=== PATIENT | male | born 1945 | race Hispanic/Latino ===

== ENCOUNTER 2016-07-17 06:27 | Day surgery (SDC) | payer BC, MEDICARE ==
[2016-07-08 13:04] VITALS: BMI 27.7
[2016-07-17] MEDS ORDERED: Propofol 10 mg/ml Inj (20 ML) ONE (08:05)
[2016-07-17] MEDS ORDERED: Lidocaine 2% Inj (20ml) ONE (08:09)
[2016-07-17 08:36] VITALS: TEMP 97.8
[2016-07-17] MEDS ORDERED: Sodium Chloride 0.9% 1,000 ML IV SCH (08:45)
[2016-07-17 09:41] VITALS: BP 129/83; PULSE 68; RESP 16; O2SAT 97
== END 2016-07-17 09:27 | disposition home or self-care (01) ==
LOC: ENDO 06:27
PROVIDERS: ATTEND Specialist
DX: K22.70 Barrett's esophagus without dysplasia (principal); K21.0 Gastro-esophageal reflux disease with esophagitis; K44.9 Diaphragmatic hernia without obstruction or gangrene; K29.50 Unspecified chronic gastritis without bleeding; I10 Essential (primary) hypertension; N40.0 Benign prostatic hyperplasia without lower urinary tract symptoms
CPT/HCPCS: 43239; 88305; 88312; 88342; J2704; J7040 ×2

== ENCOUNTER 2016-12-06 12:47 | Emergency (ER) | payer MEDICARE ==
[2016-12-06 12:48] VITALS: BMI 27.7
[2016-12-06 13:13] VITALS: RESP 18; TEMP 98.6; O2SAT 98
--- NOTE | 2016-12-06 15:13 | ED PDOC ---
Arrival/HPI - General Historian: Patient - History of Present Illness Symptom Onset: Sudden Symptom Course: Unchanged Activities at Onset: Light - General Chief Complaint: Hip Pain Time Seen by Provider: 12/06/16 13:41 - History of Present Illness Narrative History of Present Illness (Text): 12/06/16 15:26 A 71 year old male, whose past medical history includes spinal stenosis, laminectomy 7 years ago, spinal fusion 6 years ago, cervical fusion 5 years ago and chronic intermittent lower back pain worse than usual, presents to the emergency department complaining of left hip pain. Patient reports he was getting out of the car and as he was bending to pick something up, he turned his body, felt a pop. Notes pain to the left hip is non radiating and painful to touch and with movement of hip joint. Patient denies any fever, chills, abdominal pain, nausea, vomiting, urinary frequency, dysuria, hematuria, numbness or weakness in lower extremities or any other complaints at this time. PMD: Dr. Jolly Orthopedist: Dr. Scruggs internet marketing specialist in [place] : Sindhu (Kaitlyn Painter PA-C) Modifying Factors (Text): none (Kaitlyn Painter PA-C) Past Medical History - Provider Review Nursing Documentation Reviewed: Yes - Cardiac Hx Hypertension: Yes - Pulmonary Hx Respiratory Disorders: No - Neurological Hx Neurological Disorder: No Hx Paralysis: No - HEENT Hx Cataracts: Yes - Renal Hx Renal Disorder: No - Endocrine/Metabolic Hx Endocrine Disorders: No - Hematological/Oncological Hx Blood Disorders: No Hx Blood Transfusions: No Hx Blood Transfusion Reaction: No - Integumentary Hx Dermatological Disorder: No - Musculoskeletal/Rheumatological Hx Musculoskeletal Disorders: No - Gastrointestinal Hx Gastroesophageal Reflux: Yes - Psychiatric Hx Emotional Abuse: No Hx Physical Abuse: No Hx Substance Use: No - Surgical History Other/Comment: prostate surgery x2, back and neck surgery , abd. hernia x4 , left eye ,left shoulder rotator cuff, carpel tunnel b/l wrist - Anesthesia Hx Anesthesia Reactions: No Hx Malignant Hyperthermia: No - Suicidal Assessment Feels Threatened In Home Enviroment: No Family/Social History - Physician Review Nursing Documentation Reviewed: Yes Family/Social History: No Known Family HX Smoking Status: Former Smoker Hx Alcohol Use: Yes (GIN/TONIC ON OCCASSION) Hx Substance Use: No Allergies/Home Meds Allergies/Adverse Reactions: Allergies No Known Allergies Allergy (Verified 12/06/16 18:02) Home Medications: Home Meds Medication Instructions Recorded Confirmed Atorvastatin Calcium [Lipitor] 20 mg PO QAM 03/19/13 12/06/16 Esomeprazole Magnesium [Nexium] 40 mg PO QAM 03/19/13 12/06/16 Amlodipine Besylate [Norvasc] 10 mg PO QAM 05/17/15 12/06/16 Aspirin [Aspirin EC] 81 mg PO QAM 05/17/15 12/06/16 Cholecalciferol (Vitamin D3) 2,000 unit PO QAM 05/17/15 12/06/16 [Vitamin D] Valsartan [Diovan] 320 mg PO QAM 05/17/15 12/06/16 hydroCHLOROthiazide [Hydrodiuril] 25 mg PO QAM 07/08/16 12/06/16 Ibuprofen [Advil] 200 mg PO PRN PRN 07/17/16 12/06/16 Review of Systems - Physician Review All systems were reviewed & negative as marked: Yes - Review of Systems Constitutional: absent: Fevers, Other (chills) Gastrointestinal: absent: Abdominal Pain, Nausea, Vomiting Genitourinary Male: absent: Dysuria, Frequency, Hematuria Musculoskeletal: Other (left hip pain) Physical Exam Vital Signs Reviewed: Yes Temperature: Afebrile Blood Pressure: Normal Pulse: Regular Respiratory Rate: Normal Appearance: Positive for: Well-Appearing, Non-Toxic, Comfortable Pain Distress: Mild Mental Status: Positive for: Alert and Oriented X 3 - Systems Exam Head: Present: Atraumatic, Normocephalic Pupils: Present: PERRL Extroacular Muscles: Present: EOMI Conjunctiva: Present: Normal Mouth: Present: Moist Mucous Membranes Neck: Present: Normal Range of Motion Respiratory/Chest: Present: Clear to Auscultation, Good Air Exchange. No: Respiratory Distress, Accessory Muscle Use Cardiovascular: Present: Regular Rate and Rhythm, Normal S1, S2. No: Murmurs Abdomen: Present: Normal Bowel Sounds. No: Tenderness, Distention, Peritoneal Signs Back: Present: Normal Inspection Upper Extremity: Present: Normal Inspection. No: Cyanosis, Edema Lower Extremity: Present: Other (point tender lateral side of left hip, reproducible with passive and active ROM). No: Edema Neurological: Present: GCS=15, CN II-XII Intact, Speech Normal Skin: Present: Warm, Dry, Normal Color. No: Rashes Psychiatric: Present: Alert, Oriented x 3, Normal Insight, Normal Concentration Medical Decision Making ED Course and Treatment: 12/06/16 15:11 Impression: A 71 year old male with left hip pain. Differential Diagnosis included but are not limited to: r/o fracture Plan: -- Radiology of Lumbar spine -- Radiology of left hip w/ pelvis -- CT hip -- CT lumbar spine -- Reassess and disposition Progress Notes: 12/06/16 15:32 Radiographs of the Lumbar Spine Creator : Keegan Marie MD FINDINGS: BONES: Pedicle screws and rods are seen at L3, L4, L5 and S1. There is a wide laminectomy DISC SPACES: There is severe disc degeneration at L1-2 and L2-3 IMPRESSION: Fusion and laminectomy. Disc degeneration in the upper lumbar spine 12/06/16 15:34 Left Hip and pelvis X-ray Radiographs Creator : Keegan Marie MD FINDINGS: BONES: Normal. No fracture. JOINTS: Normal. SOFT TISSUES: Normal. IMPRESSION: Negative study XR results reviewed, considering the nature of pt's symptoms and exam will order CT of the spine and hip to r/o any occult fracture, which the pt and his agrees with. 12/06/16 17:20 CT Lumbar Spine without contrast Creator : Argelia Beavers FINDINGS: VERTEBRAE: The patient is status post posterior internal fixation and fusion at L3, L4, L5 and S1. There are bilateral pedicle screws at L3-S1 seen. The patient is also status post laminectomy at L3, L4 and L5. There is loss of height of L4 vertebral body noted. DISCS/SPINAL CANAL/NEURAL FORAMINA: L1-2: There is moderate-size disc bulge osteophyte complex associated with posterior ligament and facet joint hypertrophy which resulting in moderate spinal and neural foraminal narrowing right more than left. L2-3: Moderate size disc herniation seen associated with significant posterior ligament and large facet joint hypertrophy which resulting in moderate to mildly severe spinal and moderate bilateral neural foraminal narrowing. L3-4: Patient status post laminectomy. No evidence of significant thecal sac narrowing. L4-5: Status post laminectomy. No significant thecal sac narrowing seen. L5-S1: No evidence of significant thecal sac narrowing seen. PARASPINAL SOFT TISSUES: Large cystic formation seen in both kidneys. Diffuse atherosclerotic disease. IMPRESSION: Disc bulge osteophyte complex at L1-L2 associated with posterior ligament hypertrophy and resulting in moderate spinal and neural foraminal narrowing. Disc herniation at L2-L3 associated with posterior ligament and facet joint hypertrophy which resulting in moderate to mildly severe spinal and moderate neural foraminal narrowing. Status post posterior fixation and fusion at L3-S1. Severe degenerative disc changes. 12/06/16 18:23 CT of the left hip without contrast Creator : Argelia Beavers FINDINGS: There is no evidence of acute fracture or dislocation. There are moderate to mildly severe osteoarthritic changes associated with narrowing of the joint is space and marginal osteophyte lipping seen. There is small to moderate size left hip joint effusion seen. Evaluation of the soft tissue in the pelvis demonstrate diffuse diverticulosis in the sigmoid colon. There is mild urinary bladder wall thickening. The prostate is mildly enlarged. There is mild subcutaneous edema and stranding seen at the left pelvis wall and left proximal thigh. IMPRESSION: No evidence of acute fracture or dislocation. Moderate to mildly severe osteoarthritic changes associated with small to moderate-sized left hip joint effusion. 12/06/16 18:38 CT results of the L spine and L hip reviewed and discussed with the pt and his . Advised to f/u results with his editorial specialist and his orthopedist without fail in 2 days. Otherwise advised to take tylenol for pain and apply ice to his L hip. Pt advised to continue using his cane to walk. He agrees with outpt f/u. (Inocencio CARTER,Kaitlyn Quiles) CT findings reviewed with patient. Suspect possible muscle/ligamentous injury. Patient has cane. His ortho is Dr. Scruggs. Stressed need for neurosurgery follow- up and ortho follow-up. He is NV intact and ambulatory on discharge. (Maryann Madera) - RAD Interpretation Radiology Orders: 12/06/16 14:14 HIP MIN 2V W/ PELVIS LT [RAD] Stat LS SPINE WITH OBL > 18 YRS OLD [RAD] Stat 12/06/16 15:07 HIP WITHOUT CONTRAST LEFT [CT] Stat LUMBAR SPINE W/O CONTRAST [CT] Stat - PA / SENIOR TELECOMMUNICATIONS SPECIALIST / Resident Statement MD/DO has reviewed & agrees with the documentation as recorded. - Scribe Statement The provider has reviewed the documentation as recorded by the Scribe - Scribe Statement Abdoulaye Arroyo Provider Scribe Attestation: All medical record entries made by the Scribe were at my direction and personally dictated by me. I have reviewed the chart and agree that the record accurately reflects my personal performance of the history, physical exam, medical decision making, and the department course for this patient. I have also personally directed, reviewed, and agree with the discharge instructions and disposition. (Inocencio CARTER,Kaitlyn Quiles) Disposition/Present on Arrival - Present on Arrival Any Indicators Present on Arrival: No History of DVT/PE: No History of Uncontrolled Diabetes: No Urinary Catheter: No History of Decub. Ulcer: No History Surgical Site Infection Following: Orthopedic Procedures - Disposition Have Diagnosis and Disposition been Completed?: Yes Disposition Time: 18:32 Patient Plan: Discharge - Disposition Diagnosis: Hip pain, left Disposition: HOME/ ROUTINE Condition: STABLE Discharge Instructions (ExitCare): Hip Pain (ED) Print Language: UZBEK Additional Instructions: Thank you for letting us take care of you today. You were treated for L hip pain , likely muscle / ligamentous strain. The emergency medical care you received today was directed at your acute symptoms. It may take several days for your symptoms to resolve. Return to the Emergency Department if your symptoms worsen , do not improve, or if you have any other problems. Please contact your doctor and your editorial specialist in 2 days for re- evaluation. Bring any paperwork you were given at discharge with you along with any medications you are taking to your follow up visit. Our treatment cannot replace ongoing medical care by a primary care provider (PCP) outside of the emergency department. Thank you for allowing the [facility] team to be part of your care today. If you had an X-Ray or CT scan: A Radiologist will review the ED reading if any change in treatment is needed we will contact you. CT of the lumbar spine without contrast: IMPRESSION: Disc bulge osteophyte complex at L1-L2 associated with posterior ligament hypertrophy and resulting in moderate spinal and neural foraminal narrowing. Disc herniation at L2-L3 associated with posterior ligament and facet joint hypertrophy which resulting in moderate to mildly severe spinal and moderate neural foraminal narrowing. Status post posterior fixation and fusion at L3-S1. Severe degenerative disc changes. CT of the left hip without contrast IMPRESSION: No evidence of acute fracture or dislocation. Moderate to mildly severe osteoarthritic changes associated with small to moderate-sized left hip joint effusion. Referrals: Frank Jolly MD [Primary Care Provider] - Follow up with primary Forms: [employer] ([place])
--- NOTE | 2016-12-06 15:29 | RAD ---
PROCEDURE: Radiographs of the Lumbar Spine. HISTORY: pain COMPARISON: No prior. FINDINGS: BONES: Pedicle screws and rods are seen at L3, L4, L5 and S1. There is a wide laminectomy DISC SPACES: There is severe disc degeneration at L1-2 and L2-3 OTHER FINDINGS: None. IMPRESSION: Fusion and laminectomy. Disc degeneration in the upper lumbar spine
--- NOTE | 2016-12-06 15:33 | RAD ---
PROCEDURE: Left Hip and pelvis X-ray Radiographs. HISTORY: pain COMPARISON: None. FINDINGS: BONES: Normal. No fracture. JOINTS: Normal. SOFT TISSUES: Normal. OTHER FINDINGS: None. IMPRESSION: Negative study
--- NOTE | 2016-12-06 17:19 | CT ---
PROCEDURE: CT Lumbar Spine without contrast HISTORY: L hip pain, h/o spinal fusion COMPARISON: None. TECHNIQUE: Axial computed tomography images were obtained of the lumbar spine without the use of intravenous contrast. Coronal and sagittal reformatted images were created and reviewed. Radiation dose: Total exam DLP = 796.64 mGy-cm. This CT exam was performed using one or more of the following dose reduction techniques: Automated exposure control, adjustment of the mA and/or kV according to patient size, and/or use of iterative reconstruction technique. FINDINGS: VERTEBRAE: The patient is status post posterior internal fixation and fusion at L3, L4, L5 and S1. There are bilateral pedicle screws at L3-S1 seen. The patient is also status post laminectomy at L3, L4 and L5. There is loss of height of L4 vertebral body noted. DISCS/SPINAL CANAL/NEURAL FORAMINA: L1-2: There is moderate-size disc bulge osteophyte complex associated with posterior ligament and facet joint hypertrophy which resulting in moderate spinal and neural foraminal narrowing right more than left. L2-3: Moderate size disc herniation seen associated with significant posterior ligament and large facet joint hypertrophy which resulting in moderate to mildly severe spinal and moderate bilateral neural foraminal narrowing. L3-4: Patient status post laminectomy. No evidence of significant thecal sac narrowing. L4-5: Status post laminectomy. No significant thecal sac narrowing seen. L5-S1: No evidence of significant thecal sac narrowing seen. PARASPINAL SOFT TISSUES: Large cystic formation seen in both kidneys. Diffuse atherosclerotic disease. OTHER FINDINGS: None. IMPRESSION: Disc bulge osteophyte complex at L1-L2 associated with posterior ligament hypertrophy and resulting in moderate spinal and neural foraminal narrowing. Disc herniation at L2-L3 associated with posterior ligament and facet joint hypertrophy which resulting in moderate to mildly severe spinal and moderate neural foraminal narrowing. Status post posterior fixation and fusion at L3-S1. Severe degenerative disc changes.
[2016-12-06 18:15] VITALS: BP 116/69; PULSE 74
--- NOTE | 2016-12-06 18:20 | CT ---
PROCEDURE: CT of the left hip without contrast HISTORY: L hip pain, r/o occult fx COMPARISON: Comparison is made to the previous x-ray of the hip dated 12/06/2016 TECHNIQUE: Axial and reformatted coronal and sagittal CT images of the left hip were obtained without contrast administration. FINDINGS: There is no evidence of acute fracture or dislocation. There are moderate to mildly severe osteoarthritic changes associated with narrowing of the joint is space and marginal osteophyte lipping seen. There is small to moderate size left hip joint effusion seen. Evaluation of the soft tissue in the pelvis demonstrate diffuse diverticulosis in the sigmoid colon. There is mild urinary bladder wall thickening. The prostate is mildly enlarged. There is mild subcutaneous edema and stranding seen at the left pelvis wall and left proximal thigh. IMPRESSION: No evidence of acute fracture or dislocation. Moderate to mildly severe osteoarthritic changes associated with small to moderate-sized left hip joint effusion.
== END 2016-12-06 18:42 | disposition home or self-care (01) ==
LOC: ED 12:47
DX: M25.552 Pain in left hip (principal); I10 Essential (primary) hypertension; Z87.891 Personal history of nicotine dependence; Z98.890 Other specified postprocedural states

== ENCOUNTER 2017-04-16 07:26 | Day surgery (SDC) | payer MEDICARE ==
[2017-04-04 12:50] VITALS: BMI 28.2
[2017-04-16] MEDS ORDERED: Benzocaine/Butamben/Tetracai 14-2-2% TOP Spray TOP ONE (07:56)
[2017-04-16] MEDS ORDERED: Propofol 10 mg/ml Inj (20 ML) ONE (09:20)
[2017-04-16] MEDS ORDERED: Lactated Ringer's 1,000 ML IV SCH (09:45)
[2017-04-16 10:42] VITALS: TEMP 97.6
[2017-04-16 10:43] VITALS: BP 117/65; PULSE 73; RESP 17; O2SAT 96
== END 2017-04-16 10:58 | disposition home or self-care (01) ==
LOC: ENDO 07:26
PROVIDERS: ATTEND Specialist
DX: K20.9 Esophagitis, unspecified (principal); K22.70 Barrett's esophagus without dysplasia; K44.9 Diaphragmatic hernia without obstruction or gangrene; I10 Essential (primary) hypertension
CPT/HCPCS: 43239; 88305; 88312; J2001; J2704; J7040; J7120

== ENCOUNTER 2018-01-22 06:38 | Day surgery (SDC) | payer MEDICARE ==
[2017-04-04 12:50] VITALS: BMI 28.2
[2018-01-22 07:17] VITALS: RESP 16
[2018-01-22] MEDS ORDERED: Propofol 10 mg/ml Inj (20 ML) ONE (07:45)
[2018-01-22] MEDS ORDERED: Lidocaine 1% Inj (20ml) ONE (07:46)
[2018-01-22] MEDS ORDERED: Sodium Chloride 0.9% 1,000 ML IV SCH (08:30)
[2018-01-22 09:19] VITALS: BP 112/77; PULSE 68; TEMP 97.4; O2SAT 98
== END 2018-01-22 09:33 | disposition home or self-care (01) ==
LOC: ENDO 06:38
PROVIDERS: ATTEND Specialist
DX: K22.10 Ulcer of esophagus without bleeding (principal); K44.9 Diaphragmatic hernia without obstruction or gangrene; K31.7 Polyp of stomach and duodenum; I10 Essential (primary) hypertension; N40.0 Benign prostatic hyperplasia without lower urinary tract symptoms
CPT/HCPCS: 43239; 43251; 88305; 88312; 88342; J2704; J7030; J7040